=== PATIENT | female | born 1965 | race Hispanic/Latino ===

== ENCOUNTER 2023-02-09 07:40 | Day surgery (SDC) | payer OTHER ==
[2023-02-04 09:45] VITALS: BP 143/72
[~2023-02-09] VITALS: Ht 154.9 cm; Wt 88.2 kg
[2023-02-09] VITALS (8 sets, daily range): BP systolic 102–149; BP diastolic 54–77
[~2023-02-09 07:40] MED LIST: AMLO5TAB5 PO; AZEL23SP2 NS; CETI10CA5 PO; CHOL500051 PO; FAMO-136 PO; MULT-660 PO; OMEG-148 PO
[2023-02-09] MEDS ORDERED: 0.9%NACL 1000ML 1,000 ML IV ONE (08:38)
[2023-02-09] MEDS ORDERED: PROPOFOL 10 MG/ML 20ML VIAL IV ONE (09:39)
== END 2023-02-09 10:30 | disposition home or self-care (01) ==
LOC: ENDO 07:40 → DAH 07:40 → ENDO 10:30
PROVIDERS: ATTEND Internal Medicine Gastroenterology
DX: Z12.11 Encounter for screening for malignant neoplasm of colon (principal); Z20.822 Contact with and (suspected) exposure to COVID-19; D12.0 Benign neoplasm of cecum; D12.4 Benign neoplasm of descending colon; I10 Essential (primary) hypertension; F41.9 Anxiety disorder, unspecified; F32.9 Major depressive disorder, single episode, unspecified; Z90.49 Acquired absence of other specified parts of digestive tract; Z98.891 History of uterine scar from previous surgery; Z86.010 Personal history of colon polyps; Z79.899 Other long term (current) drug therapy
CPT/HCPCS: 87426; 45380; 45385; J7030 ×2; J2704; A4620; A4215 ×2; A4223; A4657 ×2; A7002; A4222; A4221; A4663; A4606